=== PATIENT | female | born 1985 | race Caucasian/White ===

== ENCOUNTER 2017-01-16 06:30 | Inpatient (IN) | payer OTHER ==
[2017-01-16] MEDS ORDERED: ELECTROLYTE-148 SOLN 500 ML IV ONE (07:00)
[2017-01-16 07:22] VITALS: BMI 42.3
[2017-01-16] MEDS ORDERED: CITRIC ACID/SODIUM CITRATE 30 ML UNIT-DOSE CUP PO ONE (08:15)
[2017-01-16] MEDS ORDERED: ELECTROLYTE-148 SOLN 1,000 ML IV SCH (08:15)
[2017-01-16] MEDS ORDERED: ONDANSETRON 4 MG/2 ML VIAL IVPB PRN (08:41)
[2017-01-16] MEDS ORDERED: ACETAMINOPHEN 1000 MG/100 ML VIAL (NON FORMULARY) IVPB PRN (08:43)
[2017-01-16] MEDS: OXYTOCIN 20 UNITS in 0.9% NS 1,000 ML IV SCH (09:30)
[2017-01-16] MEDS ORDERED: METHYLERGONOVINE MALEATE 0.2 MG/1 ML AMP IM PRN (09:40)
--- NOTE | 2017-01-16 10:05 | HP ---
Past Medical History - Primary Care Physician PCP:: Fabiana Chen - Admission Chief Complaint: 31 yrs , 39 weeks , previous c/sx2 , is requesting for repeat c/section History of Present Illness: Pnc at , [facility] wt gain 14 lbs work Up : O Pos,Rpr nr, Hbsag neg, Rubella pos, Quantiferon neg, ! hr gtt 135, Hiv neg, Gbs neg, NT screen neg , LoPaap on NT screen , aFp neg, materna T-21 neg. 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 G2 Repeat C/S 10/25/2013 7'11' [facility] Heme/Onc: Yes: Anemia Infectious Disease: No: STD's Endocrine: No: Diabetes Mellitus, Hypothyroidism - Past Surgical History Past Surgical History: Yes: (01/2002, 10/2013) Hx Myomectomy: No Hx Transabdominal Cerclage: No - Smoking History Smoking history: Never smoked Have you smoked in the past 12 months: No Aproximately how many cigarettes per day: 0 - Alcohol/Substance Use Hx Alcohol Use: No History of Substance Use: reports: None Home Medications - Allergies Allergies/Adverse Reactions: Allergies Allergy/AdvReac Type Severity Reaction Status Date / Time No Known Allergies Allergy Verified 01/13/17 10:40 - Home Medications Home Medications: Ambulatory Orders Pnv No.25/Iron Fumarate/FA/Dha [-1 Capsule] 1 each PO DAILY #0 capsule 10/28/13 Albuterol Sulfate Inhaler - [Ventolin Hfa Inhaler -] 1 - 2 inh PO QID PRN Ferrous Sulfate [Feosol] 325 mg PO DAILY 01/13/17 Physical Exam - Maternity Vital Signs: Vital Signs Temperature 97.8 F 01/16/17 07:12 Pulse Rate 74 01/16/17 07:12 Respiratory Rate 20 01/16/17 07:12 Blood Pressure 138/81 01/16/17 07:12 O2 Sat by Pulse Oximetry (%) Selected Entries 01/16/17 07:12 Weight 224 lb Constitutional: Yes: Well Nourished, Obese Eyes: Yes: WNL HENT: Yes: WNL Neck: Yes: WNL Cardiovascular: Yes: WNL Lungs: Clear to auscultation Breast(s): Yes: WNL - Abdominal Exam/OB Fundal Height: 42 Number of Fetuses: Single Presentation: Vertex Contractions: No Heart Rate (range): 120 Heart Rate Location: [facility] Category: I Accelerations: Uniform Decelerations: None - Vaginal Exam/OB Vaginal Bleediing: No Speculum Exam: No Dilatation (cm): close Effacement (%): unefface Amniotic Membrane Status: Intact Presentation: Vertex/Position (exam at 8.00am) Station: -3 - Physical Exam Musculoskeletal: Yes: WNL Extremities: Yes: WNL. No: Calf Tenderness Edema: Yes Edema: LLE: 1+, RLE: 1+ Integumentary: Yes: WNL, Incision (old pfannensteil scar), Tattoos Deep Tendon Reflex Grade: Normal +2 ...Motor Strength: WNL Psychiatric: Yes: WNL, Alert, Oriented - Labs Lab Results: Laboratory Tests 01/13/17 01/13/17 01/13/17 09:20 09:20 09:20 WBC 10.8 H RBC 4.86 Hgb 12.9 D Hct 39.6 D Plt Count 253 D Neutrophils % 74.9 Lymphocytes % 18.4 D Monocytes % 5.9 Eosinophils % 0.6 Basophils % 0.2 INR 1.02 Sodium 139 Potassium 4.0 Chloride 105 Carbon Dioxide 23 BUN 6 L D Creatinine 0.4 L Random Glucose 74 AST 20 ALT 15 RPR Titer 01/13/17 09:20 WBC RBC Hgb Hct Plt Count Neutrophils % Lymphocytes % Monocytes % Eosinophils % Basophils % INR Sodium Potassium Chloride Carbon Dioxide BUN Creatinine Random Glucose AST ALT RPR Titer Nonreactive Hemorrhage Risk Assessment - Risk Factors Medium Risk Factors: Yes: Prior , uterine surgery,or multiple laparotomies Risk Score: 1 Risk Level: Medium Risk Problem List - Problems (1) 39 weeks gestation of Code(s): Z3A.39 - 39 WEEKS GESTATION OF (2) Previous section Code(s): Z98.89 - OTHER SPECIFIED POSTPROCEDURAL STATES * DO NOT USE * (3) Obesity affecting Code(s): O99.210 - OBESITY COMPLICATING , UNSPECIFIED TRIMESTER E66.9 - OBESITY, UNSPECIFIED Assessment/Plan 31 yrs , previous c/s x2 admitted for repeat c/section . Gbs neg
--- NOTE | 2017-01-16 10:24 | PN ---
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 PNC at [address] [place] [address] Obesity. Gbs neg . Intrapartum, Multiple small anterior subserosal & intramural fibroids noted Both tubes & ovaries normal Iv Ancef 2 gm ivpb prior to incision was given intrapartum course uneventful
--- NOTE | 2017-01-16 10:31 | OP ---
Operative Note - Note: Operative Date: 01/16/17 Pre-Operative Diagnosis: 39 weeks, previous c/s x2 Obesity Findings: NO definite parietal peritoneum noted. Rt side Rectus muscle also was not noted. peritoneal cavity was enterd transversely . 8.35 am , Baby Boy, 9/9, wt 7'10", LOT difficult encountered to deliver the baby, Mity Vac applied in occiptal area with fundal pressure & vaccum one pull baby was delievered from LOT position . Bot tubes & ovaries were normal Pt received 2 gm Iv Ancef prior to incision Post-Operative Diagnosis: Other (Fibroid Uterus) Surgeon: Fabiana Chen Postal Transportation Clerk: Thomas Campos Anesthesiologist/CHANGE OVER: Jeanette Steen Anesthesia: Spinal Estimated Blood Loss (mls): 1,000 Drains, Volume Out (mls): 200 (rajput urine ainsley color ) Operative Report Dictated: Yes
[2017-01-16 10:45] LABS: ARTERIAL BLOOD GAS BASE EXCESS -1.5 meq/l (-2-2); ARTERIAL BLOOD GAS pH 7.29 (7.35-7.45)
[2017-01-16 10:46] LABS: LPM/O2% 21%; PT. ON O2? NO; TYPE OF O2 ROOM AIR
[2017-01-16 10:53] LABS: ARTERIAL BLOOD GAS BASE EXCESS -0.1 meq/l (-2-2); ARTERIAL BLOOD GAS HCO3 25.1 meq/L (22-26); ARTERIAL BLOOD GAS pH 7.34 (7.35-7.45); LPM/O2% 21%; PT. ON O2? NO; TYPE OF O2 ROOM AIR
[2017-01-16 10:54] LABS: ARTERIAL BLD GAS O2 SATURATION 34.9 % (90-98.9); ARTERIAL BLOOD GAS PO2 19.6 mmHg (80-100)
[2017-01-16 10:55] LABS: ARTERIAL BLOOD GAS PO2 17.9 mmHg (80-100)
[2017-01-16 10:56] LABS: ARTERIAL BLD GAS O2 SATURATION 26.3 % (90-98.9)
--- NOTE | 2017-01-16 13:45 | PN ---
Progress Note (short form) - Note Progress Note: ID Consult dictated Mother of immune to varicella (IgG 3.55) and has no evidence of herpes zoster. She may have contact with baby. Father with recently diagnosed herpes zoster. He needs to be cleared by his provider prior to having contact with the baby
[2017-01-16] MEDS: IBUPROFEN 800 MG/8 ML IJ IVPB PRN ×2 (15:40→23:57)
[2017-01-16] MEDS ORDERED: CEFAZOLIN (PRE-DOCKED) 50 ML IVPB ONE (16:22)
[2017-01-16] MEDS: CEFAZOLIN 1 GM/D5W 50 ML IVPB SCH (16:26)
[2017-01-17] MEDS: CEFAZOLIN 1 GM/D5W 50 ML IVPB SCH ×2 (00:59→08:10)
[2017-01-17] MEDS: OXYTOCIN 20 UNITS in 0.9% NS 1,000 ML IV SCH ×2 (05:10→17:52)
[2017-01-17] MEDS: IBUPROFEN 800 MG/8 ML IJ IVPB PRN (06:33)
[2017-01-17] MEDS ORDERED: oxyCODONE HCL 5 MG TABLET PO PRN (08:00)
--- NOTE | 2017-01-17 08:02 | PN ---
Progress Note (short form) - Note Progress Note: pod 1 has mild low abdominal discomfort abdomen soft, no distension, no cav incision dry urine claer in rajput no excess vaginal bleeding plan ambulate, advance diet. cbc
[2017-01-17] MEDS ORDERED: CEFAZOLIN (PRE-DOCKED) 50 ML IVPB ONE (08:03)
[2017-01-17 08:39] LABS: BASOPHIL 0.4 % (0-2.0); EOSINOPHIL 0.8 % (0-4.5); MCH 26.7 pg (25.7-33.7); MCHC 32.5 g/dl (32.0-36.0); MEAN PLT VOLUME 9.9 fl (7.5-11.1); NEUTROPHILS 73.7 % (42.8-82.8); PLATELET COUNT 191 K/MM3 (134-434); RDW 16.4 % (11.6-15.6); WHITE BLOOD COUNT 12.9 K/mm3 (4.0-10.0)
--- NOTE | 2017-01-17 08:39 | PN ---
Progress Note (short form) - Note Progress Note: Post op day#1.S/P C section under spinal anesthesia with duramorph uneventful.Patient stable and has pain score of 2-3/10 for which she is on medication.No any anesthesia related problem.Patient DC from the anesthesia care.
[2017-01-17] MEDS: ACETAMINOPHEN 325 MG TABLET (FP) PO PRN (09:13)
[2017-01-17] MEDS: SIMETHICONE 80 MG TAB.CHEW (FP) PO PRN ×3 (09:13→17:54)
[2017-01-17] MEDS: PRENATAL VITAMINS W/ FOLIC ACID TABLET (FP) PO SCH (09:14)
[2017-01-17] MEDS: ENOXAPARIN NA (PORCINE) 40 MG/0.4 ML DISP.SYRIN SQ SCH (09:15)
[2017-01-17] MEDS ORDERED: BISACODYL 10 MG SUPP.RECT RC PRN (09:40)
--- NOTE | 2017-01-17 13:50 | CONS ---
DATE OF CONSULTATION: 01/16/2017 HISTORY OF PRESENT ILLNESS: The patient is a 31-year-old female, who is status post section today, seen in consultation for potential varicella exposure. The patient underwent a section earlier today. According to the nurses notes, the patients significant other was recently diagnosed by health care provider as having herpes zoster. The patient herself is asymptomatic. She reports having varicella as a child. A positive varicella IGG was confirmed by Dr. Chen from the outpatient clinic. Her varicella IGG was 3.55. Patient has no complaints of any rash at the present time. No fever or chills,. PAST MEDICAL HISTORY: As above. ALLERGIES: No known allergies. PHYSICAL EXAMINATION: General: The patient is awake and alert. She is not acutely toxic-appearing and in no acute distress. Vital signs: She is afebrile. HEENT: Sclerae anicteric. Heart: Heart sounds S1, S2. Lungs: Clear. Abdomen: Soft. Mild incisional tenderness. Extremities: Negative for edema. Skin: No rash noted. IMPRESSION: The patient has a history of varicella in childhood and has a positive varicella titer consistent with immunity. There is no evidence of active rash at the present time to suggest herpes zoster. Patient may have contact with her . I have advised that the patients significant other not have contact with the while there is a diagnosis of herpes zoster. Once the patients significant other is cleared by his provider, may have contact with the . Thank you for the kind referral. ASHWIN ROSA M.D. EMILIANA/[id number]
[2017-01-17] MEDS: IBUPROFEN 600 MG TABLET (FP) PO PRN (17:54)
[2017-01-17] MEDS: oxyCODONE HCL 5 MG TABLET PO PRN (17:55)
[2017-01-17] MEDS: FERROUS SO4 325 MG TABLET (FP) PO SCH (21:21)
[2017-01-17] MEDS: SENNOSIDES/DOCUSATE COMBO (SENNA PLUS) TABLET (UD) PO PRN (21:21)
--- NOTE | 2017-01-17 22:59 | OP ---
DATE OF OPERATION: 01/16/2017 PREOPERATIVE DIAGNOSIS: At 39 weeks, previous sections x2, obesity. POSTOPERATIVE DIAGNOSIS: At 39 weeks, previous sections x2, obesity and fibroid uterus. PROCEDURE: Fabiana Chen MD SURGEON: TOBIAS Barnes ANESTHESIOLOGIST: Jeanette Steen MD ANESTHESIA: Spinal. FINDINGS: This is a 31-year-old 3, para 2-0-0-2 previous section, requested repeat section. The patient not in labor. DESCRIPTION OF PROCEDURE: Abdomen was shaved and Ferguson catheter was placed. The patient was taken tot eh operating room table and spinal anesthesia was given and she was placed in the supine position. Abdomen was painted and draped in the usual manner. The umbilicus was lifted up and then the Pfannenstiel incision was made through previous scar, skin, and subcutaneous tissue. Anterior rectus sheath was incised transversely. On the right side, it was directly entered into the peritoneal cavity and fluid was noted coming out. The left side, the anterior rectus sheath was incised transversely and the muscles were noted. On the right side, there were no muscles. The peritoneal cavity was entered transversely only and the bladder was pushed down. The parietal peritoneum was opened transversely and the lower segment was isolated and it was incised transversely and amniotic fluid was plenty and it was clear. The baby was in the TREV position. Fundal pressure was attempted and baby could not be delivered, so the baby's head was brought up to incision and Mityvac vacuum cup was applied at the occipital area of the fetus and accompanied by the fundal pressure and pull with the vacuum cup, the baby was delivered from LOT position. score was 9 and 9 and the baby was delivered at 8:35 a.m. and then the cord was clamped and then cord blood was collected and also the cord blood was sent for cord blood gases and placenta was removed completely with the membranes. Uterine cavity was cleaned and closure of the uterine incision was done in 2 layers. First layer was continuous locking with Biosyn 0 suture. The second was a continuous intermittently locking with Biosyn 0 suture. Then the visceral peritoneum was closed with a Biosyn 0 suture. Hemostasis was checked. Both the tubes and ovaries were normal. There were multiple small fibroids in the anterior aspect of the uterus. Both tubes & ovaries were normal Then irrigation was done. The sponge, instrument and needle count was correct. The closure of the abdomen was done. The parietal peritoneum was closed in a single layer with Vicryl O suture continuous sutures were taken. The muscle on the Left side it was resected when we had opened the abdomen, it was closed and hemostasis was checked and the rectus sheath was closed with Vicryl suture. The Daniele ,the subcutaneous tissue layer was closed along with the scar tissue with Biosyn 0 suture and then hemostasis was checked in subcutaneous tissue. The skin mobilized from underneath the scar and the skin was approximated with jayla. Pressure dressing was given and blood clots were removed from the vagina. ESTIMATED BLOOD LOSS: 1,000 mL. URINE OUTPUT: 200 mL and it was ainsley-colored. PROPHYLAXIS: She received 2 g of IV Ancef prior to the incision. DISPOSITION: She tolerated the procedure well and she was transferred to the recovery room in stable condition. Jacob [id number] MTDD
[2017-01-18] MEDS: oxyCODONE HCL 5 MG TABLET PO PRN (02:13)
[2017-01-18] MEDS: IBUPROFEN 600 MG TABLET (FP) PO PRN ×2 (02:13→13:12)
--- NOTE | 2017-01-18 08:26 | PN ---
Progress Note (short form) - Note Progress Note: pod 2 doing well, passing gas ,voids ok CBC, BMP 01/17/17 07:45 Last Vital Signs Temp Pulse Resp BP Pulse Ox 98.0 F 76 20 132/75 100 01/18/17 07:35 01/18/17 07:35 01/18/17 07:35 01/18/17 07:35 01/16/17 10:15 abdomen soft, no distension, no cva incision dry, clean no calf tenderness plan ambulate, advance diet , cbc in am
[2017-01-18] MEDS: ENOXAPARIN NA (PORCINE) 40 MG/0.4 ML DISP.SYRIN SQ SCH (09:51)
[2017-01-18] MEDS: FERROUS SO4 325 MG TABLET (FP) PO SCH ×2 (09:51→21:39)
[2017-01-18] MEDS: PRENATAL VITAMINS W/ FOLIC ACID TABLET (FP) PO SCH (09:51)
[2017-01-18] MEDS: ACETAMINOPHEN 325 MG TABLET (FP) PO PRN (13:13)
[2017-01-18] MEDS: SIMETHICONE 80 MG TAB.CHEW (FP) PO PRN (13:14)
--- NOTE | 2017-01-18 17:16 | DS ---
Physical Exam-PUMP TESTER Vital Signs: Vital Signs Temperature 98.0 F 01/18/17 07:35 Pulse Rate 76 01/18/17 07:35 Respiratory Rate 20 01/18/17 07:35 Blood Pressure 132/75 01/18/17 07:35 O2 Sat by Pulse Oximetry (%) 100 01/16/17 10:15 Selected Entries 01/20/17 10:00 Temperature 98.8 F Pulse Rate 78 Blood Pressure 136/77 Constitutional: Yes: Well Nourished, Pallor Eyes: Yes: WNL HENT: Yes: WNL, Normocephalic Neck: Yes: WNL Cardiovascular: Yes: WNL Respiratory: Yes: WNL Gastrointestinal: Yes: WNL, Normal Bowel Sounds, Abdomen, Obese. No: Distention , Tenderness ...Rectal Exam: Yes: WNL Renal/: Yes: Other (voiding without difficulty) ....Post : Yes: Uterus firm, Uterus non-tender, Moderate lochia rubra Breast(s): Yes: WNL Musculoskeletal: Yes: WNL Extremities: Yes: WNL. No: Calf Tenderness Edema: LLE: 1+, RLE: 1+ Integumentary: Yes: Tattoos Wound/Incision: Yes: Clean/Dry, Well Approximated, Steri Strips, Open to air, [place] Removed (on 01/20/17). No: Reddened, Bleeding, Excoriated Neurological: Yes: WNL, Alert, Oriented ...Motor Strength: WNL Psychiatric: Yes: WNL Labs: CBC, BMP 01/17/17 07:45 Laboratory Tests 01/19/17 07:45 WBC 11.4 H Hgb 9.5 L Hct 29.7 L Plt Count 250 D Delivery - Delivery Section: Repeat, Low Flap Transverse (Indication : 39 weeks, previous c /sx2 .) Type of Anesthesia: Spinal Episiotomy/Laceration: None EBL (cc): 1,000 (rajput out put 200 ml ainsley color ) Delivery, Single - Stages of Labor Date of Delivery: 01/16/17 Time of Delivery: 08:35 Time Placenta Delivered: 08:35 Placenta: Yes: Manual Removal, Uterine Exploration - Condition of Infant 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 PNC at [address] [place] [address] Obesity. Gbs neg . Intrapartum, Multiple small anterior subserosal & intramural fibroids noted Both tubes & ovaries normal Iv Ancef 2 gm ivpb prior to incision was given intrapartum course uneventful . post op course uneventful. pt requests for discharge on 01/19/17 post op day #3 pt was not discharged on 01/19/17 due to Hyper billirubinemia in the baby, . Baby is under phototherapy baby is still retained in the hosp. pt is discharged 01/20/17 .she will f/u in the clinic in 1 week Discharge Summary Reason For Visit: Current Active Problems 39 weeks gestation of (Acute) Delivery by (planned) section occurring after 37 completed weeks of gestation but before 39 completed weeks gestation due to (spontaneous) onset of labor, with mention of complication (Acute) Obesity affecting (Acute) Previous section (Acute) Condition: Stable - Instructions Diet, Activity, Other Instructions: Post Instructions DIET: Continue good diet high in protein, calcium, and iron rich foods. Drink at least eight (8) glasses of water daily in addition to other fluids. Ct Regular diet MEDICATIONS: Continue vitamins and iron as previously directed. Motrin and Tylenol may be taken for minor discomfort. ACTIVITY: Mild to moderate exercise may be started in two (2) weeks. Take frequent rest periods. Resume normal activity after six (6) week check up. WOUND CARE OF OPERATIVE SITE: Continue use of perineal bottle until vaginal discharge stops. Keep area clean. Shower daily. Keep abdominal wound dry. Report any drainage or redness to physician. Tub baths, tampons and douches are not permitted for [address] Breast feeding & or Bottle feeding BREAST CARE: (For those that are not breast feeding): If engorgement occurs: Wear tight fitting bra. Take Tylenol or Motrin for pain. Apply cold packs (ice in bags to each breast ) FAMILY PLANNING: There are many control alternatives to pursue and they should be discussed at your first office visit. You may resume sexual activity after your six (6) week check up. (Remember, breast feeding is not a contraceptive) NEXT PHYSICIAN APPOINTMENT: Be certain to call for a one (1) week appointment, unless otherwise directed. RTC Friday for jayla removal Call Clinic or got to Emergency Dept if you have any of the following: Heavy vaginal bleeding Painful urination Leg pain Unusual odor noted to vaginal bleeding High fever Red streaking noted on breast Referrals: Fabiana Chen MD [Staff Physician] - Disposition: HOME - Home Medications Comprehensive Discharge Medication List: Ambulatory Orders Pnv No.25/Iron Fumarate/FA/Dha [-1 Capsule] 1 each PO DAILY #0 capsule 10/28/13 Albuterol Sulfate Inhaler - [Ventolin HFA Inhaler -] 1 - 2 inh PO QID PRN Ferrous Sulfate [Feosol] 325 mg PO DAILY 01/13/17 Acetaminophen [Tylenol .Regular Strength -] 650 mg PO Q4H PRN #0 tablet Ferrous Sulfate [Feosol] 325 mg PO BID 01/18/17 Ibuprofen [Motrin -] 600 mg PO Q4H PRN #30 tablet 01/18/17 Vitamins ([facility]) - 1 tab PO DAILY tablet 01/18/17
[2017-01-18] MEDS: SENNOSIDES/DOCUSATE COMBO (SENNA PLUS) TABLET (UD) PO PRN (21:39)
[2017-01-19] MEDS: SIMETHICONE 80 MG TAB.CHEW (FP) PO PRN ×3 (00:39→18:20)
[2017-01-19] MEDS: IBUPROFEN 600 MG TABLET (FP) PO PRN ×3 (00:40→18:18)
[2017-01-19] MEDS: ACETAMINOPHEN 325 MG TABLET (FP) PO PRN ×3 (00:41→18:19)
[2017-01-19] MEDS: ENOXAPARIN NA (PORCINE) 40 MG/0.4 ML DISP.SYRIN SQ SCH (09:22)
[2017-01-19] MEDS: PRENATAL VITAMINS W/ FOLIC ACID TABLET (FP) PO SCH (09:22)
[2017-01-19] MEDS: FERROUS SO4 325 MG TABLET (FP) PO SCH ×2 (09:22→21:08)
[2017-01-19 09:34] LABS: BASOPHIL 0.2 % (0-2.0); EOSINOPHIL 2.3 % (0-4.5); MCH 26.3 pg (25.7-33.7); MCHC 32.2 g/dl (32.0-36.0); MEAN CELL VOLUME 81.8 fl (80-96); MEAN PLT VOLUME 9.4 fl (7.5-11.1); NEUTROPHILS 76.7 % (42.8-82.8); PLATELET COUNT 250 K/MM3 (134-434); RDW 16.1 % (11.6-15.6); WHITE BLOOD COUNT 11.4 K/mm3 (4.0-10.0)
--- NOTE | 2017-01-19 12:08 | PN ---
Post Progress Note - Subjective Subjective: no c/o pain Post Day: 3 Type of Delivery: Repeat C/S Vital Signs: Vital Signs Temperature 99.0 F 01/19/17 08:10 Pulse Rate 82 01/19/17 08:10 Respiratory Rate 20 01/19/17 08:10 Blood Pressure 138/80 01/19/17 08:10 O2 Sat by Pulse Oximetry (%) 100 01/16/17 10:15 Breast Exam: Yes: Soft, Other (BF ). No: Engorged Uterus: Yes: Fundus Firm, Fundus below umbilicus Incision: Yes: [place] intact. No: Redness Abdomen/GI: Yes: Abdomen soft, Passing flatus, Tolerating PO (diet). No: Abdominal Distention, Tender Lochia: Yes: Rubra Lochia, amount: Moderate Extremities: Yes: Calves non-tender, Edema Perineum: Yes: Intact Activity: Ambulating - Labs Labs: CBC WBC 11.4 K/mm3 (4.0-10.0) H 01/19/17 07:45 RBC 3.63 M/mm3 (3.60-5.2) 01/19/17 07:45 Hgb 9.5 GM/dL (10.7-15.3) L 01/19/17 07:45 Hct 29.7 % (32.4-45.2) L 01/19/17 07:45 MCV 81.8 fl (80-96) 01/19/17 07:45 MCHC 32.2 g/dl (32.0-36.0) 01/19/17 07:45 RDW 16.1 % (11.6-15.6) H 01/19/17 07:45 Plt Count 250 K/MM3 (134-434) D 01/19/17 07:45 MPV 9.4 fl (7.5-11.1) 01/19/17 07:45 Neutrophils % 76.7 % (42.8-82.8) 01/19/17 07:45 Lymphocytes % 15.6 % (8-40) 01/19/17 07:45 Monocytes % 5.2 % (3.8-10.2) 01/19/17 07:45 Eosinophils % 2.3 % (0-4.5) D 01/19/17 07:45 Basophils % 0.2 % (0-2.0) 01/19/17 07:45 Problem List - Problems (1) 39 weeks gestation of Code(s): Z3A.39 - 39 WEEKS GESTATION OF (2) Previous section Code(s): Z98.89 - OTHER SPECIFIED POSTPROCEDURAL STATES * DO NOT USE * (3) Obesity affecting Code(s): O99.210 - OBESITY COMPLICATING , UNSPECIFIED TRIMESTER E66.9 - OBESITY, UNSPECIFIED Assessment/Plan stable. will discharge tomorrow.
[2017-01-20] MEDS: ACETAMINOPHEN 325 MG TABLET (FP) PO PRN (05:16)
[2017-01-20] MEDS: SIMETHICONE 80 MG TAB.CHEW (FP) PO PRN (05:17)
[2017-01-20] MEDS: IBUPROFEN 600 MG TABLET (FP) PO PRN (05:17)
--- NOTE | 2017-01-20 08:16 | PN ---
Progress Note (short form) - Note Progress Note: pod 4 doing well, no c/o abdomen soft, non tender, no cva incision clean no calf tenderness plan d/c home, rtc in 3 days for staple removal
[2017-01-20] MEDS: FERROUS SO4 325 MG TABLET (FP) PO SCH (09:56)
[2017-01-20] MEDS: ENOXAPARIN NA (PORCINE) 40 MG/0.4 ML DISP.SYRIN SQ SCH (09:56)
[2017-01-20] MEDS: PRENATAL VITAMINS W/ FOLIC ACID TABLET (FP) PO SCH (09:58)
[2017-01-20 10:27] VITALS: BP 136/77; PULSE 78; TEMP 98.8
--- NOTE | 2017-01-22 13:53 | PATH ---
Surgical Pathology Report Patient Name: MAURICIO NORIEGA [facility]. Rec. #: [id number] /Age/Gender: 1985 (Age: 31) / F Account: [id number] Location: [facility] OBS/WARDROBE COORDINATOR Taken: 01/16/2017 Received: 01/17/2017 Reported: 01/22/2017 Physicians: Fabiana Chen M.D. Specimen(s) Received PLACENTA Clinical History , c/section x2 Repeat scheduled c/section Final Diagnosis PLACENTA, DELIVERY: FOCALLY DISRUPTED THIRD TRIMESTER PLACENTA WITH FOCAL PARENCHYMAL HEMORRHAGE, MILD TO MODERATE INCREASE IN PREVILLOUS, PERIVILLOUS, AND PRECHORIONIC FIBRIN DEPOSITION, THREE VESSEL UMBILICAL CORD, AND PLACENTAL MEMBRANES WITH FOCAL AMNION HYPERPLASIA. Electronically Signed Kevin Madden M.D. Gross Description The specimen is received fresh, labeled "placenta" and is a 458 gram, 15.0 x 15.0 x 3.0 cm placenta with attached membranes and umbilical cord. The attached membranes are guard[place], translucent with focal opacities and insert marginally. The umbilical cord measures 17.5 cm in length and averages 0.8 cm in diameter. The cord inserts centrally. No true knots or strictures are identified. Cut surface of the umbilical cord reveals 3 vessels. The surface is owens-blue with fibrin deposition and appropriate caliber vessels. The maternal surface is red-brown with focal defects. Sectioning reveals a 0.9 cm in greatest dimension hemorrhagic lesion. The remaining placental parenchyma is red-brown and spongy. [place] Rinder sections are submitted in 4 cassettes as follows: 1-membrane rolls and umbilical cord; 2-lesion; 3-4-full thickness sections of placenta. 01/20/201701/20/2017
== END 2017-01-20 16:20 | disposition home or self-care (01) | DRG 540 ==
LOC: JLDR 06:30 → J3W 11:04
PROVIDERS: ADMIT Obstetrics & Gynecology; ATTEND Obstetrics & Gynecology
PROC: 10D00Z1 Extraction of Products of Conception, Low, Open Approach (ICD-10-PCS; principal; 2017-01-16)
DX: O34.211 Maternal care for low transverse scar from previous cesarean delivery (principal); O34.10 Maternal care for benign tumor of corpus uteri, unspecified trimester; D25.1 Intramural leiomyoma of uterus; O99.213 Obesity complicating pregnancy, third trimester; D25.2 Subserosal leiomyoma of uterus; Z3A.39 39 weeks gestation of pregnancy; Z37.0 Single live birth
CPT/HCPCS: 36415; 36600; 82803; 85025; 88307-TC; 94010

== ENCOUNTER 2017-12-30 09:06 | Emergency (ER) | payer OTHER ==
[2017-12-30 09:31] VITALS: TEMP 98; BMI 37.8
--- NOTE | 2017-12-30 10:07 | PDOC ---
History of Present Illness - General History Source: Patient Exam Limitations: No Limitations - History of Present Illness Initial Comments: 12/30/17 11:04 The patient is a 32-year-old female who is 8-weeks , , with a significant past medical history of anemia and asthma, who presents to the ED with a few days of vaginal bleeding. The patient states that when she is using the bathroom she sees blood when she wipes and sometimes in the toilet after urinating. She denies saturating any pads. Last menstrual cycle lasted from -11/02/17. The vaginal bleeding is accompanied by right-sided lower back pain and abdominal pain. She describes her back pain as intermittent and crampy in sensation. She describes her abdominal pain as mild and stabbing in sensation. 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 The patient denies any fever, chills, nausea, vomiting, or diarrhea. She denies any dysuria. She denies any history of kidney stones. Allergies: NKDA Surgical Hx: C-sections. Social Hx: She denies any tobacco, alcohol, or drug use. <Elizabeth Torres - Last Filed: 12/30/17 11:04> - General History Source: Patient Exam Limitations: No Limitations <Sendy Carrillo - Last Filed: 01/02/18 00:30> - General Chief Complaint: Vaginal Bleeding Stated Complaint: VAGINAL BLEEDING (8 WKS ) Time Seen by Provider: 12/30/17 10:06 Past History <Elizabeth Torres - Last Filed: 12/30/17 11:04> - Past Medical History Anemia: Yes Asthma: Yes Cancer: No Cardiac Disorders: No COPD: No Diabetes: No HTN: No Seizures: No Thyroid Disease: No - Reproductive History (#): 2 Para: 1 - Suicide/Smoking/Psychosocial Hx Smoking Status: No Smoking History: Never smoked Have you smoked in the past 12 months: No Number of Cigarettes Smoked Daily: 0 Hx Alcohol Use: No Drug/Substance Use Hx: No Hx Substance Use Treatment: No <Sendy Carrillo - Last Filed: 01/02/18 00:30> - Past Medical History Allergies/Adverse Reactions: Allergies Allergy/AdvReac Type Severity Reaction Status Date / Time No Known Allergies Allergy Verified 12/30/17 09:28 Home Medications: Ambulatory Orders Vitamins (Sjr) - 1 tab PO DAILY tablet 01/18/17 Review of Systems - Review of Systems Able to Perform ROS?: Yes Comments:: 12/30/17 11:05 GENERAL/CONSTITUTIONAL: No: fever, chills, weakness, loss of appetite. HEAD, EYES, EARS, NOSE AND THROAT: No: change in vision, ear pain, discharge, sore throat, throat swelling. CARDIOVASCULAR: No: chest pain, lightheadedness, palpitations, syncope RESPIRATORY: No: cough, shortness of breath, wheezing, hemoptysis, stridor. GASTROINTESTINAL:Yes: abdominal pain. No: nausea, vomiting, diarrhea, rectal bleeding, constipation. GENITOURINARY: Yes: vaginal bleeding. No: dysuria, frequency, urgency, flank pain. MUSCULOSKELETAL: Yes: right-sided back pain. No: neck pain, joint pain, muscle swelling or pain SKIN AND BREASTS: No: lesions, pallor, rash or easy bruising. NEUROLOGIC: No: headache, vertigo, paresthesias, weakness ENDOCRINE: No: unexplained weight gain or loss HEMATOLOGIC/LYMPHATIC: No: anemia, easy bleeding, swelling nodes <Elizabeth Torres - Last Filed: 12/30/17 11:04> *Physical Exam - Vital Signs Last Vital Signs Temp Pulse Resp BP Pulse Ox 98 F 81 19 140/80 100 12/30/17 09:28 12/30/17 09:28 12/30/17 09:28 12/30/17 09:28 12/30/17 09:28 - Physical Exam Comments: 12/30/17 11:07 GENERAL: The patient is in no acute distress. HEAD: Normal with no signs of trauma. EYES: PERRLA, EOMI, sclera anicteric, conjunctiva clear. ENT: Ears normal, nares patent, oropharynx clear without exudates. Moist mucous membranes. NECK: Normal range of motion, supple without lymphadenopathy, JVD, or masses. LUNGS: Breath sounds equal, clear to auscultation bilaterally. No wheezes, and no crackles. HEART:Regular rate and rhythm, normal S1 and S2 without murmur, rub or gallop. ABDOMEN: Soft, nontender, normoactive bowel sounds. No guarding, no rebound. EXTREMITIES: Normal range of motion, no edema. No clubbing or cyanosis. No erythema, or tenderness. NEUROLOGICAL: Cranial nerves II through XII grossly intact. Normal speech. No focal neurological deficits. MUSCULOSKELETAL:(+)Right-sided CVA tenderness. SKIN: Warm, Dry, normal turgor, no rashes or lesions noted. <Elizabeth Torres - Last Filed: 12/30/17 11:04> - Vital Signs Last Vital Signs Temp Pulse Resp BP Pulse Ox 98 F 81 19 140/80 100 12/30/17 09:28 12/30/17 09:28 12/30/17 09:28 12/30/17 09:28 12/30/17 09:28 <Sendy Carrillo - Last Filed: 01/02/18 00:30> ED Treatment Course - LABORATORY CBC & Chemistry Diagram: 12/30/17 10:20 12/30/17 10:20 - ADDITIONAL ORDERS Additional order review: Laboratory Results 12/30/17 10:20 Sodium 135 L Potassium 4.1 Chloride 102 Carbon Dioxide 24 Anion Gap 9 BUN 6 L Creatinine 0.5 L Random Glucose 127 H Calcium 8.6 <Elizabeth Torres - Last Filed: 12/30/17 11:04> - LABORATORY CBC & Chemistry Diagram: 12/30/17 10:20 12/30/17 10:20 <Sendy Carrillo - Last Filed: 01/02/18 00:30> Medical Decision Making - Medical Decision Making 12/30/17 12:09 Ms Taylor is a 32 yo G4, P3 F LMP Nov 02 with a history of asthma and anemia She presents to the Er with a complaint of 1 week of vaginal bleeding She is not saturating any pads She notes spotting, and blood when she wipes she reports pain in the lower abdomen and right flank No dysuria, no hematuria No fevers or chills On examination: Pt seated calmly in the hallway, pt appears comfortable Abd mildly tender to palpation in the superior abdomen No involuntary guarding or rebound Differential diagnosis includes: Ectopic (patient has not had an ultrasound to this point) disease, ovarian cyst, ovarian torsion, UTI, kidney stone, pyelonephritis Will do: Labs US UA Re assess 12/30/17 12:13 Laboratory Tests 12/30/17 12/30/17 12/30/17 10:20 10:20 10:20 WBC 10.4 H Hgb 11.1 D Hct 34.6 D Plt Count 375 D Sodium 135 L Potassium 4.1 Chloride 102 Carbon Dioxide 24 BUN 6 L Creatinine 0.5 L Random Glucose 127 H Beta HCG, Quant 34462.7 Urine Ketones Negative Urine Blood 3+ H Ur Leukocyte Esterase Negative Pending ultrasounds 12/30/17 13:15 Laboratory Tests 12/30/17 10:20 Blood Type O POSITIVE 12/30/17 13:19 Gravid uterus with a single live intrauterine compatible 7 weeks gestation. Poor visualization of the pole and yolk sac. Small fibroid in the anterior myometrium measuring 2 cm. Normal appearing left ovary with normal vascular flow. Right ovary not visualized Pt will need to follow up with engine specialist for repeat BHCG and US This was discussed with patient Clinical impression: vaginal bleeding in early , initial presentation 12/30/17 15:19 I received a call by the lab after this patient left the ER They are requesting that this patient have additional blood tests to evaluate for antibodies Pt was called She can follow up with her engine specialist for blood testing <Sendy Carrillo - Last Filed: 01/02/18 00:30> *DC/Admit/Observation/Transfer - Attestations Scribe Attestion: 12/30/17 11:21 Documentation prepared by Elizabeth Torres, acting as medical malpractice paralegal for Sendy Carrillo MD. <Elizabeth Torres - Last Filed: 12/30/17 11:04> - Discharge Dispostion Admit: No <Sendy Carrillo - Last Filed: 01/02/18 00:30> Diagnosis at time of Disposition: Bleeding in early - Discharge Dispostion Disposition: HOME Condition at time of disposition: Stable - Patient Instructions Printed Discharge Instructions: DI for Vaginal Bleeding During , DI for Vaginal Bleeding Additional Instructions: Please follow up with your Banking Management Consulting Manager at your Please return to the ER with any other concerns or complaints, new symptoms, worsening symptoms. Please return to the ER with vaginal bleeding - saturating 2 pads per hour for 2 hours
[2017-12-30 10:50] LABS: BASO % 0.4 % (0-2.0); EOS % 1.3 % (0-4.5); HEMATOCRIT 34.6 % (32.4-45.2); HEMOGLOBIN 11.1 GM/dL (10.7-15.3); LYMPH % 20.2 % (8-40); MCH 27.4 pg (25.7-33.7); MEAN CELL VOLUME 85.6 fl (80-96); MEAN PLT VOLUME 8.7 fl (7.5-11.1); MONO % 3.5 % (3.8-10.2); NEUT % 74.6 % (42.8-82.8); PLATELET COUNT 375 K/MM3 (134-434); RBC 4.04 M/mm3 (3.60-5.2); RDW 15.6 % (11.6-15.6); WHITE BLOOD COUNT 10.4 K/mm3 (4.0-10.0)
[2017-12-30 10:58] LABS: ANION GAP 9 (8-16); BLOOD UREA NITROGEN 6 mg/dL (7-18); CALCIUM 8.6 mg/dL (8.5-10.1); CHLORIDE 102 mmol/L (98-107); CO2 24 mmol/L (21-32); CREATININE 0.5 mg/dL (0.55-1.02); GLUCOSE,RANDOM 127 mg/dL (74-106); POTASSIUM 4.1 mmol/L (3.5-5.1); SODIUM 135 mmol/L (136-145)
[2017-12-30 11:45] LABS: URINE APPEARANCE SLCLOUDY; URINE BILIRUBIN NEGATIVE (NEGATIVE); URINE BLOOD 3+ (NEGATIVE); URINE COLOR LTYELLOW; URINE GLUCOSE (UA) NEGATIVE (NEGATIVE); URINE KETONE NEGATIVE (NEGATIVE); URINE LEUK ESTERASE NEGATIVE (NEGATIVE); URINE NITRITE NEGATIVE (NEGATIVE); URINE PROTEIN NEGATIVE (NEGATIVE); URINE UROBILINOGEN NEGATIVE mg/dL (0.2-1.0)
[2017-12-30 12:14] LABS: EPI CELLS FEW /HPF (FEW); URINE BACTERIA RARE /hpf (NONE SEEN); URINE MUCUS RARE
[2017-12-30 13:25] VITALS: BP 137/78; PULSE 84
== END 2017-12-30 13:25 | disposition home or self-care (01) ==
LOC: JER 09:06
DX: O26.891 Other specified pregnancy related conditions, first trimester (principal); O20.8 Other hemorrhage in early pregnancy; Z3A.08 8 weeks gestation of pregnancy
CPT/HCPCS: 36415; 76775-TC; 76830-TC; 80048; 81003; 81015; 84702; 85025; 86850; 86870; 86886; 86900; 86901; 86902; 87086; 99283-25

== ENCOUNTER 2018-05-24 04:39 | Emergency (ER) | payer OTHER ==
--- NOTE | 2018-05-24 04:47 | PDOC ---
History of Present Illness - General Stated Complaint: WEAKNESS Time Seen by Provider: 05/24/18 04:43 - History of Present Illness Initial Comments: 05/24/18 04:55 Patient is a 33 year old female at a self-reported 27 weeks gestation with a PMH of asthma, anemia and pre-gestational diabetes BIBEMS after a syncopal episode. Patient states she woke up from sleep this evening and felt like she was gasping for air. Patient went to the refrigerator in her bedroom to drink some water felt lightheaded and and the then the next thing she recalls is being on the floor and her rubbing her back telling her to wake up. Patient's @ bedside notes patient fell from standing to sitting and hit her head on a pair of shoes and was non-responsive for 10-15 seconds. Notes she felt similarly short of breath and lightheaded without any noted syncope earlier this week. 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 Denies any current chest pain, shortness of breath, abdominal cramping, vaginal bleeding. Past History - Past Medical History Allergies/Adverse Reactions: Allergies Allergy/AdvReac Type Severity Reaction Status Date / Time No Known Allergies Allergy Verified 05/24/18 04:55 Home Medications: Ambulatory Orders Vitamins (Sjr) - 1 tab PO DAILY tablet 01/18/17 Anemia: Yes Asthma: Yes Cancer: No Cardiac Disorders: No COPD: No Diabetes: No HTN: No Seizures: No Thyroid Disease: No - Reproductive History (#): 2 Para: 1 - Suicide/Smoking/Psychosocial Hx Smoking Status: No Smoking History: Never smoked Have you smoked in the past 12 months: No Number of Cigarettes Smoked Daily: 0 Hx Alcohol Use: No Drug/Substance Use Hx: No Hx Substance Use Treatment: No Review of Systems - Review of Systems Constitutional: No: Chills HEENTM: No: Blurred Vision, Double Vision Respiratory: No: Cough, Shortness of Breath Cardiac (ROS): Yes: Syncope. No: Chest Pain, Edema, Lightheadedness, Palpitations, Chest Tightness ABD/GI: No: Abdominal Distended, Constipated, Nausea, Vomiting, Abdominal cramping Neurological: No: Headache, Numbness, Tingling, Tremors *Physical Exam - Physical Exam General Appearance: Yes: Nourished HEENT: positive: EOMI, KIRSTIE Neck: positive: Trachea midline, Supple Respiratory/Chest: positive: Lungs Clear, Normal Breath Sounds Cardiovascular: positive: Regular Rate, S1, S2 Vascular Pulses: Dorsalis-Pedis (R): 2+, Doralis-Pedis (L): 2+ Gastrointestinal/Abdominal: positive: Normal Bowel Sounds, Soft, Other (fundus @ umbilicus) Musculoskeletal: negative: CVA Tenderness (R), CVA Tenderness (L) Extremity: positive: Normal Capillary Refill, Normal Inspection Integumentary: positive: Normal Color, Dry, Warm. negative: Swelling Neurologic: positive: stepdown nurse II-XII NML intact, Fully Oriented, Alert, Responsive, Finger to Nose. negative: Facial Droop, Numbness, Confused, Disoriented ED Treatment Course - LABORATORY CBC & Chemistry Diagram: 05/24/18 05:00 05/24/18 05:00 Medical Decision Making - Medical Decision Making 05/24/18 05:00 33 year old female @ 27 weeks gestation presents w/ possible drop syncope. Tachycardic @ 101, other VS unremarkable. Will obtain basic labs, ECG, UA, Fingerstick. Reasess. 05/24/18 05:10 ECG shows HR 101, no KAREN/STD/TWI, flipped T waves V1-V6. 05/24/18 05:15 BS 140 05/24/18 05:51 CBC significant for leukocytosis 17.8 however likely 2/2 to gestation. 05/24/18 06:02 Case d/w Dr. Bruno. Will send patient to L&D for further evaluation pending no concerning lab results. 05/24/18 06:34 UA significant for 2+ protein, 1+ glucose. No HTN, no edema on PE, low clinical suspicion for pre-eclampsia. Patient to be discharged from L&D. *DC/Admit/Observation/Transfer Diagnosis at time of Disposition: Syncope - Discharge Dispostion Disposition: HOME Condition at time of disposition: Good - Referrals - Patient Instructions - Post Discharge Activity
[2018-05-24 04:57] VITALS: BMI 40.6
[2018-05-24] MEDS ORDERED: SODIUM CHLORIDE 0.9% 500 ML INFUS.BAG IV ONE (05:10)
[2018-05-24 05:22] LABS: BASO % 0.3 % (0-2.0); EOS % 0.2 % (0-4.5); HEMOGLOBIN 10.3 GM/dL (10.7-15.3); LYMPH % 9.3 % (8-40); MCH 27.3 pg (25.7-33.7); MCHC 32.2 g/dl (32.0-36.0); MEAN CELL VOLUME 84.7 fl (80-96); MEAN PLT VOLUME 8.2 fl (7.5-11.1); MONO % 3.9 % (3.8-10.2); NEUT % 86.3 % (42.8-82.8); PLATELET COUNT 309 K/MM3 (134-434); RBC 3.78 M/mm3 (3.60-5.2); RDW 15.7 % (11.6-15.6); WHITE BLOOD COUNT 17.8 K/mm3 (4.0-10.0)
[2018-05-24 05:44] LABS: ALBUMIN 2.7 g/dl (3.4-5.0); ANION GAP 12 (8-16); BILIRUBIN,TOTAL 0.4 mg/dL (0.2-1.0); BLOOD UREA NITROGEN 8 mg/dL (7-18); CALCIUM 8.7 mg/dL (8.5-10.1); CHLORIDE 107 mmol/L (98-107); CO2 21 mmol/L (21-32); CREATININE 0.5 mg/dL (0.55-1.02); GLUCOSE,RANDOM 141 mg/dL (74-106); POTASSIUM 3.5 mmol/L (3.5-5.1); SGOT/AST 42 U/L (15-37); SGPT/ALT 24 U/L (12-78); SODIUM 140 mmol/L (136-145); TOT PROT 6.5 g/dl (6.4-8.2)
[2018-05-24 05:45] LABS: ALK PHOS 100 U/L (45-117)
--- NOTE | 2018-05-24 05:55 | PDOC ---
Attending Attestation - HPI HPI: 05/24/18 05:58 Patient is a 33 year old female who is 27 weeks , with a significant past medical history of anemia, Pregestational diabetes, and asthma who presents to the ED with complaints of witnessed syncopal episodes that occurred just prior to ED arrival. Patient reports waking up gasping for air last night before walking to the kitchen to eat chocolate. As per patient's , patient experienced a syncopal episode while eating the chocolate, landing on her buttocks. Patient reports not remembering what happened, stating she suddenly woke up to her rubbing her back telling her to wake up. As per patient's , patient was unconscious for about 10 minutes before becoming responsive. Denies chest pain, Sob. Denies nausea, vomiting. Denies contact with sick individuals, out of state travelling. Denies fevers, chills. Denies head trauma , vision changes. Denies any other symptoms. Allergies: None Social history: No smoking. No alcohol. No illicit drugs. Surgical history: C-sections. PMD: None - Physicial Exam PE: 05/24/18 06:15 GENERAL: Awake, alert, and fully oriented, in no acute distress HEAD: No signs of trauma EYES: PERRLA, EOMI, sclera anicteric, conjunctiva clear ENT: Auricles normal inspection, hearing grossly normal, nares patent, oropharynx clear without exudates. Moist mucosa NECK: Normal ROM, supple, no lymphadenopathy, JVD, or masses LUNGS: Breath sounds equal, clear to auscultation bilaterally. No wheezes, and no crackles HEART: Regular rate and rhythm, normal S1 and S2, no murmurs, rubs or gallops ABDOMEN: Soft, nontender, normoactive bowel sounds. No guarding, no rebound. No masses EXTREMITIES: Normal range of motion, no edema. No clubbing or cyanosis. No cords, erythema, or tenderness NEUROLOGICAL: Cranial nerves II through XII grossly intact. Normal speech, normal gait SKIN: +Pale Warm, Dry, no rashes or lesions noted. <Salazar Raymond - Last Filed: 05/24/18 06:15> - Resident Resident Name: Cynthia Mooney - ED Attending Attestation I have performed the following: I have examined & evaluated the patient, The case was reviewed & discussed with the resident, I agree w/resident's findings & plan - Medical Decision Making 05/24/18 21:34 Pt comes with fall in the bedroom today. She got up to get water from her bedside mini fridge and she fell back. We will not get head CT scan, as she has normal neuro exam, no LOC and she is and I do not want to irradiate pt (even with a lead shield, as it is not indicated) SHe has normal labs and exam and she will be sent up to L+D for monitoring of her fetus. <Lourdes Velazquez - Last Filed: 05/24/18 21:37>
[2018-05-24 06:20] LABS: URINE APPEARANCE CLOUDY; URINE BILIRUBIN NEGATIVE (<2.0 mg/dL); URINE COLOR YELLOW; URINE GLUCOSE (UA) 1+ (NEGATIVE); URINE KETONE TRACE (NEGATIVE); URINE LEUK ESTERASE TRACE (NEGATIVE); URINE NITRITE NEGATIVE (NEGATIVE); URINE UROBILINOGEN NEGATIVE mg/dL (0.2-1.0)
[2018-05-24 06:25] LABS: URINE PROTEIN 2+ (NEGATIVE)
[2018-05-24 06:29] LABS: EPI CELLS MODERATE /HPF (FEW); URINE BACTERIA RARE /hpf (NONE SEEN); URINE HYALINE CAST 1 /lpf; URINE MUCUS RARE
[2018-05-24] MEDS ORDERED: ELECTROLYTE-148 SOLN 500 ML IV ONE ×2 (07:00→08:00)
[2018-05-24] MEDS ORDERED: TERBUTALINE SULFATE 1 MG/1 ML VIAL SQ ONE ×2 (08:10→08:11)
[2018-05-24 08:24] VITALS: BP 112/66; PULSE 89; TEMP 98.6
--- NOTE | 2018-05-24 14:14 | EKG ---
Test Reason : Blood Pressure : / mmHG Vent. Rate : 101 BPM Atrial Rate : 101 BPM P-R Int : 158 ms QRS Dur : 078 ms QT Int : 346 ms P-R-T Axes : 043 021 003 degrees QTc Int : 448 ms SINUS TACHYCARDIA NONSPECIFIC T WAVE ABNORMALITY ABNORMAL ECG NO PREVIOUS ECGS AVAILABLE Confirmed by Harpal Rangel ([id number]) on 05/24/2018 2:14:20 PM Referred By: Confirmed By:Harpal Rangel
== END 2018-05-24 10:50 | disposition home or self-care (01) ==
LOC: JER 04:39
PROC: 3E0337Z Introduction of Electrolytic and Water Balance Substance into Peripheral Vein, Percutaneous Approach (ICD-10-PCS; principal; 2018-05-24)
PROC: 3E023GC Introduction of Other Therapeutic Substance into Muscle, Percutaneous Approach (ICD-10-PCS; 2018-05-24)
DX: O26.892 Other specified pregnancy related conditions, second trimester (principal); R55 Syncope and collapse; J45.909 Unspecified asthma, uncomplicated; Z3A.27 27 weeks gestation of pregnancy
CPT/HCPCS: 36415; 76817-TC; 80053; 81003; 81015; 82550; 82962; 84484; 84702; 85025; 93005; 93010; 96372; 96374; 99285-25

== ENCOUNTER 2018-05-26 06:30 | Inpatient (IN) | payer OTHER ==
[2018-05-26] MEDS ORDERED: BETAMET ACET/BETAMET NA PH 30 MG/5 ML VIAL ONE (07:22)
[2018-05-26 07:32] VITALS: BMI 41.5
[2018-05-26] MEDS ORDERED: BETAMET ACET/BETAMET NA PH 30 MG/5 ML VIAL IM ONE (07:53)
[2018-05-26] MEDS ORDERED: ELECTROLYTE-148 SOLN 1,000 ML IV SCH (08:00)
[2018-05-26 08:11] VITALS: BP 120/65; PULSE 87; TEMP 99
== END 2018-05-26 08:35 | disposition short-term general hospital (02) | DRG 566 ==
LOC: JDEL 06:30 → JLDR 06:55
PROVIDERS: ADMIT Obstetrics & Gynecology; ATTEND Obstetrics & Gynecology
DX: O42.913 Preterm premature rupture of membranes, unspecified as to length of time between rupture and onset of labor, third trimester (principal); O99.214 Obesity complicating childbirth; Z3A.29 29 weeks gestation of pregnancy; E66.01 Morbid (severe) obesity due to excess calories; Z68.41 Body mass index [BMI] 40.0-44.9, adult
CPT/HCPCS: 96372

== ENCOUNTER 2025-05-05 18:59 | Emergency (ER) | payer OTHER ==
[2025-05-05 19:17] VITALS: BP 135/79; PULSE 73; RESP 18; TEMP 99.3; BMI 37.0
[2025-05-05] MEDS ORDERED: TETRACAINE 0.5% OPHTH SOLN 2 ML BOTTLE ONE (19:35)
[2025-05-05] MEDS ORDERED: FLUORESCEIN NA 1 EA STRIP ONE (19:35)
[2025-05-05] MEDS: TETRACAINE 0.5% HCL 0.6ML DROPPER.BOTTLE OD ONE (19:40)
[2025-05-05] MEDS: FLUORESCEIN NA 1 EA STRIP OU ONE (19:40)
[2025-05-05] MEDS ORDERED: DOXYCYCLINE HYCLATE 100 MG TABLET PO ONE (20:22)
[2025-05-05] MEDS ORDERED: valACYclovir HCL 500 MG TABLET (FP) ONE (20:22)
[2025-05-05] MEDS: DOXYCYCLINE HYCLATE 100 MG CAPSULE PO ONE (20:25)
[2025-05-05] MEDS: valACYclovir HCL 500 MG TABLET (FP) PO ONE (20:25)
== END 2025-05-05 20:25 | disposition home or self-care (01) ==
LOC: JERFT 18:59 → JER 18:59 → JERFT 20:25
DX: R21 Rash and other nonspecific skin eruption (principal); R22.0 Localized swelling, mass and lump, head; R59.0 Localized enlarged lymph nodes; R51.9 Headache, unspecified
CPT/HCPCS: 99283-25